=== PATIENT | male | born 1990 | race Asian ===

== ENCOUNTER 2017-11-01 20:45 | Emergency (ER) | payer SELFPAY ==
[~2017-11-01] VITALS: Ht 182.9 cm; Wt 81.6 kg
--- NOTE | 2017-11-01 21:05 | NUR ---
TO BED 10 A 27 YO MALE PATIENT BBSELF AND C/O LEFT SHOULDER AND ARM PAIN SINCE 1729 TODAY AT 10/11. PATIENT IS AAOX3, NAD NOTED. VSS. NONDIAPHORETIC.
[2017-11-01 21:55] VITALS: BP 158/109
--- NOTE | 2017-11-01 21:55 | NUR ---
Patient discharged to home in stable condition. Written and verbal after care instructions given. Patient verbalizes understanding of instruction. PT ambulatory with a steady gait VITAL SIGNS WITHIN NORMAL LIMITS.
== END 2017-11-01 21:55 | disposition home or self-care (01) ==
LOC: ER 20:54
DX: R20.2 Paresthesia of skin (principal); M79.602 Pain in left arm; J45.909 Unspecified asthma, uncomplicated
CPT/HCPCS: 93005; 99283; A4606; Z7610